=== PATIENT | male | born 1995 | race Caucasian/White ===

== ENCOUNTER 2023-10-13 20:33 | Emergency (ER) | payer BC ==
[2023-10-13 20:44] VITALS: BP 116/77; PULSE 60
[2023-10-13] MEDS: Lidocaine 1% 5 ML VIAL ONE (20:55)
[2023-10-13] MEDS: Lidocaine 1% 5 ML VIAL INJECT ONE (20:58)
[2023-10-13] MEDS: Diphtheria,Pertussis(Acell),Tetanus Vaccine 0.5 ML Syringe IM ONE (21:01)
== END 2023-10-13 21:10 | disposition home or self-care (01) ==
LOC: KA.ED 20:33
DX: S01.511A Laceration without foreign body of lip, initial encounter (principal); Z23 Encounter for immunization; Z79.899 Other long term (current) drug therapy; W20.8XXA Other cause of strike by thrown, projected or falling object, initial encounter
CPT/HCPCS: 12011; 40650; 90471; 90715; 99282-25; 99283; J3490

== ENCOUNTER 2024-08-25 10:25 | Day surgery (SDC) | payer MEDICAID ==
[2024-08-25] MEDS ORDERED: Glycopyrrolate 0.2 MG/ML SDV IVPUSH ONE (10:26)
[2024-08-25] MEDS: Lactated Ringers 1,000 ML IV SCH (10:59)
[2024-08-25] MEDS ORDERED: Midazolam 1 MG/ML 2 ML SDV ONE (10:59)
[2024-08-25] MEDS ORDERED: Propofol 200 MG/20 ML SDV ONE (11:00)
[2024-08-25] MEDS ORDERED: Sodium Chloride 0.9% 10 ML Syringe FLUSH PRN (11:15)
[2024-08-25] MEDS ORDERED: Albuterol/Ipratropium 3.0-0.5 MG/3 ML Neb Soln ONE (11:48)
[2024-08-25 15:03] VITALS: BP 116/74; PULSE 46
== END 2024-08-25 13:15 | disposition home or self-care (01) ==
LOC: KA.SDS 10:25
PROVIDERS: ATTEND Surgery
DX: K29.50 Unspecified chronic gastritis without bleeding (principal); K22.70 Barrett's esophagus without dysplasia; K31.89 Other diseases of stomach and duodenum; K29.80 Duodenitis without bleeding; K21.9 Gastro-esophageal reflux disease without esophagitis
CPT/HCPCS: 00731; J1596; J2250; J2704; J7120

== ENCOUNTER 2025-01-12 19:35 | Emergency (ER) | payer MEDICAID ==
[2025-01-12] MEDS: Tetracaine HCl/PF 0.5% 4 ML Bottle EYELF ONE (20:57)
[2025-01-12] MEDS: Fluorescein 1 MG Ophth Strip EYELF ONE (20:57)
[2025-01-12 21:04] VITALS: BP 99/67; PULSE 64
== END 2025-01-12 21:03 | disposition home or self-care (01) ==
LOC: KA.ED 19:35
DX: T15.92XA Foreign body on external eye, part unspecified, left eye, initial encounter (principal); J45.909 Unspecified asthma, uncomplicated; F17.210 Nicotine dependence, cigarettes, uncomplicated; Z79.899 Other long term (current) drug therapy; Z79.51 Long term (current) use of inhaled steroids; W44.8XXA Other foreign body entering into or through a natural orifice, initial encounter
CPT/HCPCS: 65205; 99283-25; A9270-GY; J3490